=== PATIENT | female | born 1945 | race Caucasian/White ===

== ENCOUNTER 2017-05-13 05:56 | Observation (INO) | payer MEDICARE ==
[~2017-05-13] VITALS: Ht 167.6 cm; Wt 92.4 kg
[~2017-05-13 05:56] MED LIST: ASPI81CH CHEW; ATOR20TA15 PO; GABA100C4 PO; HYDR25TA5 PO; LANTUS2P SQ; LEVO25TA4 PO; LISI2.5T3 PO; METF500T PO
[2017-05-13] MEDS ORDERED: CHLORHEXIDINE GLUCONATE 2 % 1 PACK (2 CLOTHS) TOPICAL PRN (06:30)
[2017-05-13] MEDS ORDERED: LACTATED RINGER'S 1000 ML IV PRN (06:30)
[2017-05-13] MEDS ORDERED: METOPROLOL TARTRATE 25 MG TAB PO PRN (06:30)
[2017-05-13] MEDS ORDERED: ceFAZolin 1,000 MG/NS 100 ML IV SCH ×2 (06:30)
[2017-05-13] MEDS ORDERED: SODIUM CHLORID 0.9% 500 ML IV PRN (06:30)
[2017-05-13] MEDS ORDERED: LACTATED RINGER'S 1000 ML INJ 1,000 ML IV SCH (06:30)
[2017-05-13] MEDS: POVIDONE IODINE 5% (ANTISEPSIS KIT) 4 APPLICATIONS EACH NARE PRN ×2 (06:58→07:26)
[2017-05-13 07:18] VITALS: BP 135/64; PULSE 58; RESP 20; TEMP 98.8; O2SAT 96
[2017-05-13] MEDS: INSULIN HUMAN REGULAR 1,000 UNITS/10 ML VIAL SQ PRN (07:25)
[2017-05-13] MEDS ORDERED: THROMBIN (TOPICAL) 5,000 UNIT VIAL ONE (08:12)
[2017-05-13] MEDS ORDERED: GELFOAM SIZE 100 ONE (08:12)
[2017-05-13] MEDS ORDERED: GENTAMICIN SULFATE 80 MG/2 ML VIAL ONE (08:12)
[2017-05-13] MEDS ORDERED: FAMOTIDINE 20 MG/2 ML VIAL ONE (08:13)
[2017-05-13] MEDS ORDERED: LIDOCAINE 1%/EPINEPHrine 1:100,000 SOLN 20 ML VIAL ONE (08:13)
[2017-05-13] MEDS ORDERED: KETAMINE HCL 500 MG/5 ML VIAL ONE (08:13)
[2017-05-13] MEDS ORDERED: fentaNYL CITRATE 250 MCG/5 ML AMP ONE (08:13)
[2017-05-13] MEDS ORDERED: MIDAZOLAM HCL 2 MG/2 ML VIAL ONE (08:13)
[2017-05-13] MEDS ORDERED: ACETAMINOPHEN 1000 MG/100 ML VIAL IV ONE (08:14)
[2017-05-13] MEDS ORDERED: ONDANSETRON HCL 4 MG/2 ML VIAL IV PUSH ONE (12:00)
[2017-05-13] MEDS ORDERED: PROPOFOL 200 MG/20 ML AMP IV ONE (12:00)
[2017-05-13] MEDS ORDERED: LACTATED RINGER'S 1000 ML INJ 1,000 ML IV ONE (12:00)
[2017-05-13] MEDS ORDERED: ePHEDrine/NS 25 MG/5 ML SYR IV ONE (12:00)
[2017-05-13] MEDS ORDERED: ceFAZolin INJ 1,000 MG VIAL IV ONE (12:00)
[2017-05-13] MEDS ORDERED: NEOSTIGMINE 3 MG/3 ML SYR IV ONE (12:00)
[2017-05-13] MEDS ORDERED: NORMOSOL R INJ 1,000 ML IV ONE (12:00)
[2017-05-13] MEDS ORDERED: DO NOT ADM ANY ANTICOAGULANT DRUGS PRN (13:15)
[2017-05-13] MEDS ORDERED: SODIUM CHLORIDE 0.9% FLUSH 5 ML FLUSH IVF PRN (13:30)
[2017-05-13] MEDS ORDERED: NALOXONE HCL 0.4 MG/ML AMP IV PRN (13:30)
[2017-05-13] MEDS ORDERED: MORPHINE SULFATE 4 MG/ML INJ IV PRN (13:30)
--- NOTE | 2017-05-13 13:43 | PD.OP ---
Operative Report Date of Surgery: May 13, 2017 Preoperative Diagnosis: (1) Cervical disc disorder with radiculopathy 1. C5 6 central to left posterior osteophytic disc complex with severe left foraminal stenosis 2. Left C6 radiculopathy Postoperative Diagnosis: (1) Cervical disc disorder with radiculopathy 1. C5 6 central to left posterior osteophytic disc complex with severe left foraminal stenosis 2. Left C6 radiculopathy Procedure: 1. C5-6 anterior cervical discectomy, resection posterior aspect is complex, bilateral foraminotomy-microtechnique 2. C5-6 anterior cervical interbody fusion with composite allograft bone 3. C5-6 anterior cervical instrumentation Anesthesia: Gen. Surgeon: Sergio Carvajal Rn Relief Charge(s): Waylon Martinez Operation and Findings: Findings: Large central to left C5 6 posterior osteophytic disc complexes with significant left foraminal stenosis. Procedure in detail: The patient was brought into the operating room and positioned in supine position on the 3080 table with the head and neck in neutral position. Lines were established by Anesthesia. Gen. endotracheal anesthesia was induced without difficulty, taking care not to significantly flex or extend the patient's neck during intubation and positioning. Leads for intraoperative neuro monitoring were placed and a baseline study obtained. All extremities were appropriately padded. The neck and upper chest were shaved with clippers and sterilely prepped and draped. Appropriate timeout procedure was performed with all personnel present and in agreement 1% Xylocaine with epinephrine was used for local infiltration over the incision site which was made transversely at the left C5 6 level and carried sharply down through the platysma muscle. The exposure was continued medial to the sternocleidomastoid muscle and carotid artery, and lateral to the trachea and esophagus. The prevertebral fascia was elevated away from the anterior longitudinal ligament with a Kitner sponge. The longus coli muscle on each side was elevated with the Toro elevator. The self-retaining retractor was placed with the blades beneath the longus coli muscle on each side. The appropriate levels were confirmed with intraoperative C-arm and preoperative imaging studies. The microscope was brought into place and used for the remainder of the procedure including the closure. The 14 mm distraction pins were used as needed for gentle distraction during the procedure. The procedure was performed at the C5 6 level The anterior osteophyte was resected with the Le[place]ell rongeur. The disc and annulus was incised with a 15 blade knife and discectomy performed with pituitary biopsy forceps and straight and angled curettes. The TPS drill with the 5 mm barrel bur was used to decorticate the endplates and removed the majority of the osteophyte along the anterior spinal canal as well as the right and left uncovertebral joint. The thin ligament dissector was used to free up the posterior annulus and ligament from the vertebral body margin. The remainder of the resection of the posterior annulus and ligament as well as the posterior osteophyte and bilateral uncovertebral joint was performed with the 2 and 3 mm thin footplate Kerrison rongeurs. A component of herniated nucleus pulposus was encountered posterior to the annulus and was lifted away from the thecal sac with the thickened ligament dissector and removed. Significant posterior osteophyte was encountered and extensively removed. The posterior vertebral bodies were undercut with the Kerrison rongeur and the TPS drill with the 4 mm ayden bur as needed to fully decompress the anterior spinal canal. The appropriate size V G2 bone graft was then placed at each level with a good fit of the graft. The blunt nerve hook was used to probe beneath the bone graft to ensure that there was no impingement on the thecal sac or exiting nerve roots. The appropriate size Precision anterior cervical plate was then chosen and the bone screws were placed with the 14 mm fixed screws at the caudal most level and the 14 mm variable screws at the cephalad level of the decompression. The screws were firmly secured and the locking cams engaged. The entire construct was checked with intraoperative C-arm and felt to be satisfactory. The 10 [place] drain was brought out through a small incision in the left lower neck and secured to the skin with nylon suture and attached to sterile suction. The closure was performed with 3-0 Vicryl running for the platysma and interrupted for the subcutaneous closure, with 4-0 Vicryl running for the subcuticular closure. A dressing of sterile Mastisol, Steri-Strips, and Primapore dressing was placed. The patient was placed into a cervical collar, and taken to recovery room in stable condition. All counts were correct at the end of the case. Estimated blood loss was 100 cc No specimen was sent to pathology. Intraoperative neuro monitoring remained stable during the procedure. Sergio Carvajal MD May 13, 2017 13:43
[2017-05-13] MEDS ORDERED: DEXTROSE 50% IN WATER 50 ML VIAL(D50) IV PRN (13:45)
[2017-05-13] MEDS ORDERED: GLUCAGON 1 MG/ML VIAL OTHER PRN (13:45)
[2017-05-13] MEDS: 1/2 NS + KCL 20 MEQ INJ 1,000 ML IV SCH ×2 (14:50→23:27)
[2017-05-13 16:00] VITALS: BP 156/70; PULSE 87; RESP 18; TEMP 97; O2SAT 95
[2017-05-13] MEDS: INSULIN NovoLIN REGULAR SUPPLEMENTAL SCALE SQ SCH ×2 (16:49→20:28)
[2017-05-13] MEDS: metFORMIN HCL 500 MG TAB PO SCH (16:50)
[2017-05-13] MEDS: GABAPENTIN 100 MG CAP PO SCH (16:50)
--- NOTE | 2017-05-13 18:39 | RADRPT ---
EXAM DATE/TIME: 05/13/2017 09:59 [facility] COMPARISON: No previous studies available for comparison. INDICATIONS : C5-6 fusion. MEDICAL HISTORY : None. SURGICAL HISTORY : None. ENCOUNTER: Initial ACUITY: 1 day PAIN SCORE: Non-responsive. LOCATION: Bilateral C-spine. FINDINGS: There is plate and screw fixation across C5-6 with drain present on the left. Patient intubated. No c omplications identified. CONCLUSION: 1. Postoperative fusion across C5-6. Evangelist Caban MD on May 13, 2017 at 18:36 Board Certified Radiologist. This report was verified electronically.
[2017-05-13 19:10] VITALS: BP 158/70; PULSE 89; RESP 18; TEMP 96.7; O2SAT 94
[2017-05-13] MEDS: traMADol HCL 50 MG TAB PO PRN (19:30)
[2017-05-13] MEDS: INSULIN DETEMIR 100 UNITS/ML VIAL SQ SCH (20:26)
[2017-05-13] MEDS: ATORVASTATIN 20 MG TAB PO SCH (20:27)
[2017-05-13] MEDS: DOCUSATE SODIUM 100 MG CAP PO SCH (20:27)
[2017-05-13] MEDS: SODIUM CHLORIDE 0.9% FLUSH 5 ML FLUSH IVF SCH (20:28)
[2017-05-13 23:40] VITALS: BP 144/73; PULSE 87; RESP 18; TEMP 96.5; O2SAT 97
[2017-05-14] VITALS (8 sets, daily range): BP systolic 138–157; BP diastolic 61–75; PULSE 70–74; RESP 17–18; TEMP 96.3–97.7; O2SAT 95–97
[2017-05-14] MEDS: traMADol HCL 50 MG TAB PO PRN ×4 (06:06→22:10)
[2017-05-14] MEDS: LEVOTHYROXINE SODIUM 25 MCG TAB PO SCH (06:06)
[2017-05-14] MEDS: INSULIN NovoLIN REGULAR SUPPLEMENTAL SCALE SQ SCH ×4 (07:00→19:57)
[2017-05-14] MEDS ORDERED: HYDROCHLOROTHIAZIDE 25 MG TAB PO SCH (09:00)
[2017-05-14] MEDS: SODIUM CHLORIDE 0.9% FLUSH 5 ML FLUSH IVF SCH ×2 (09:00→19:53)
[2017-05-14] MEDS: LISINOPRIL 5 MG TAB PO SCH (09:26)
[2017-05-14] MEDS: PANTOPRAZOLE SOD 40 MG DELAYED RELEASE TAB PO SCH (09:27)
[2017-05-14] MEDS: metFORMIN HCL 500 MG TAB PO SCH ×2 (09:27→18:10)
[2017-05-14] MEDS: DOCUSATE SODIUM 100 MG CAP PO SCH ×2 (09:27→19:53)
[2017-05-14] MEDS: GABAPENTIN 100 MG CAP PO SCH ×3 (09:27→18:00)
[2017-05-14] MEDS: 1/2 NS + KCL 20 MEQ INJ 1,000 ML IV SCH ×2 (09:33→19:27)
[2017-05-14] MEDS: ONDANSETRON HCL 4 MG/2 ML VIAL IV PRN (10:30)
[2017-05-14] MEDS: INSULIN HUMAN REGULAR 1,000 UNITS/10 ML VIAL SQ PRN ×2 (12:42→12:53)
[2017-05-14] MEDS ORDERED: ULTR50TA5 PO (13:58)
--- NOTE | 2017-05-14 14:00 | HHI.DCPOC ---
Discharge Care Plan Diagnosis: (1) Cervical disc disorder with radiculopathy Your Health Problems Are: Difficulty with ADL Incision/Drains Exercise Tolerance Chronic Pain Goals to Promote Your Health * To prevent worsening of your condition and complications * To maintain your health at the optimal level Directions to Meet Your Goals Take your medications as prescribed Follow your dietary instruction Follow activity as directed Keep your appointments as scheduled Take your immunizations and boosters as scheduled If your symptoms worsen call your PCP, if no PCP go to Urgent Care Center or Emergency Room Smoking is Dangerous to Your Health. Avoid second hand smoke Call the 24-hour hour crisis hotline for domestic abuse at Sergio Carvajal MD May 14, 2017 14:00
--- NOTE | 2017-05-14 14:05 | HHI.DS ---
Discharge Summary Admission Date May 13, 2017 at 13:32 Discharge Date: May 14, 2017 Admitting Diagnosis Cervical disc disorder with radiculopathy Left C6 radiculopathy Procedures Date of Surgery: May 13, 2017 Preoperative Diagnosis: (1) Cervical disc disorder with radiculopathy 1. C5 6 central to left posterior osteophytic disc complex with severe left foraminal stenosis 2. Left C6 radiculopathy Postoperative Diagnosis: (1) Cervical disc disorder with radiculopathy 1. C5 6 central to left posterior osteophytic disc complex with severe left foraminal stenosis 2. Left C6 radiculopathy Procedure: 1. C5-6 anterior cervical discectomy, resection posterior aspect is complex, bilateral foraminotomy-microtechnique 2. C5-6 anterior cervical interbody fusion with composite allograft bone 3. C5-6 anterior cervical instrumentation Hospital Course Patient admitted for the above noted procedure performed without complication. Postoperative course uncomplicated. Postop day #1 tolerating diet, pain adequately controlled with oral medications. Discharge Instructions DIET: Follow Instructions for: As Tolerated, No Restrictions Activities to Avoid: Lifting/Bending, Strenuous Activity Sergio Carvajal MD May 14, 2017 14:05
[2017-05-14] MEDS ORDERED: ONDA4TAB7 SL (14:20)
--- NOTE | 2017-05-14 14:43 | HHI.NSPN ---
(Francisco Mccartney) History Chief Complaint: Neck pain (Francisco Mccartney) Interval History 05/13: The patient presented to [facility] for a C5-6 ACDF due to a left C6 radiculopathy. Post operatively she was doing well and admitted to a regular med /surg floor. 05/14: The patient is awake and sitting upright in bed with her family present. She complains of neck pain when seen. She endorsed having nausea earlier as well. When discussing discharge both family members present jumped in and stated that she didn't want to go home because she didn't feel good and was having pain. Nursing did report afterward that the patient has been up and ambulating the hallways and that her demeanor did change once her family arrived. (Francisco Mccartney) System Review Comments Constitutional: Patient denies any fever or chills. HEENT: Patient complains of sore throat but denies any hoarseness or difficulty swallowing. Neck: Patient complains of pain to back of the neck. Respiratory: Patient denies any shortness of breath or productive cough. Cardiovascular: Patient denies any chest pain, palpitations or irregular heartbeat. Gastrointestinal: Patient has had nausea due to pain medication. She denies any abdominal pain, vomiting or incontinence of stool. Genitourinary: Patient denies any incontinence of urine. Musculoskeletal: Patient denies any pain or weakness to the extremities. Neurologic: Patient complains of headache and dizziness. She denies any numbness or tingling. (Francisco Mccartney) Exam Results Vital Signs Date Time Temp Pulse Resp B/P Pulse Ox O2 Delivery O2 Flow Rate FiO2 05/14/17 12:00 97.7 71 18 145/72 97 05/14/17 10:58 21 05/13/17 15:15 Nasal Cannula 2 Intake and Output 05/13/17 05/13/17 05/13/17 07:59 15:59 23:59 Intake Total 1550 ml 839 ml Output Total 100 ml 13 ml Balance 1450 ml 826 ml (Francisco Mccartney) Physical Examination GENERAL: The patient is awake & alert sitting up in bed. She appears uncomfortable but not in distress. Her affect is flat. SKIN: Intact surgical dressing to left anterior neck w/o any shadowing, no evident erythema or streaking. No other evident discolouration, rashes, ulcerations or lesions. HEENT: Normocephalic, atraumatic. NECK: [place] J cervical collar in place, midline cervical spine NTTP, TTP to anterior surgical site, WAYNE drain to bulb suction w/serosanguinous drainage. CARDIOVASCULAR: S1S2 w/RRR w/o M/G/R, radial & pedal pulses 2+ bilaterally, cap refill < 2 sec, no pedal edema. RESPIRATORY: CTAB w/o W/R/R, equal excursion, nonlaboured, on NC. GASTROINTESTINAL: Abdomen soft, nontender, positive bowel sounds. MUSCULOSKELETAL: DYE w/o difficulty, no evident deformity or clubbing. NEUROLOGICAL: AAOx3. Speech clear & appropriate. Follows simple commands w/o difficulty. Sensation intact to light touch to all extremities. Motor strength 5/5 to all major flexion & extension muscle groups to include hand intrinsics/extrinsics. (Francisco Mcacrtney) Lab, Micro, Other Results Allergies Coded Allergies Type Severity Reaction Last Updated Verified Codeine Allergy Severe 05/13/17 Yes Contrast Media Allergy Severe Hives 05/13/17 Yes Iodine Allergy Severe Hives 05/13/17 Yes Recent Impressions Cervical Spine X-Ray 05/13/17 0000 Signed Impressions: Service Date/Time: April 09:59 - CONCLUSION: 1. Postoperative fusion across C5-6. Evangelist Caban MD ///// 05:59 17:59 05:59 17:59 05:59 17:59 Intake Total 1550 ml 839 ml 360 ml Output Total 100 ml 13 ml 5 ml Balance 1450 ml 826 ml 355 ml Intake Oral 360 ml 360 ml IV Total 150 ml 479 ml Other 1400 ml Output Urine Total 0 ml 3 ml Drainage Total 10 ml 5 ml Estimated Blood Loss 100 ml # Voids 7 # Bowel Movements 0 0 Vital Signs Date Time Temp Pulse Resp B/P Pulse Ox O2 Delivery O2 Flow Rate FiO2 05/14/17 12:00 97.7 71 18 145/72 97 05/14/17 10:58 95 21 05/14/17 08:00 96.7 70 18 144/65 96 05/14/17 03:26 96.7 74 18 157/75 97 05/13/17 23:40 96.5 87 18 144/73 97 05/13/17 19:10 96.7 89 18 158/70 94 05/13/17 16:00 97.0 87 18 156/70 95 05/13/17 15:15 85 16 153/71 97 Nasal Cannula 2 05/13/17 15:00 81 16 156/71 96 Nasal Cannula 2 05/13/17 14:45 81 16 166/71 96 Nasal Cannula 2 05/13/17 14:30 79 16 158/72 96 Nasal Cannula 2 05/13/17 14:15 82 16 164/68 95 Nasal Cannula 2 05/13/17 14:00 81 16 161/74 96 Nasal Cannula 2 05/13/17 13:45 78 16 161/73 97 Nasal Cannula 2 05/13/17 13:30 76 16 160/72 96 Nasal Cannula 4 05/13/17 13:15 80 16 163/72 95 Nasal Cannula 4 05/13/17 13:00 84 16 170/79 96 Simple Mask 10 05/13/17 12:50 98.7 83 16 174/77 98 Simple Mask 10 05/13/17 07:18 98.8 58 20 135/64 96 (Francisco Mccartney) Medical Decision Making Impression and Plan Impression: (1) Cervical disc disorder with radiculopathy 1. C5 6 central to left posterior osteophytic disc complex with severe left foraminal stenosis 2. Left C6 radiculopathy Patient doing well although patient complains of pain, neurologically intact. WAYNE drain w/15 mL out. POD # 1 () s/p: 1. C5-6 anterior cervical discectomy, resection posterior aspect is complex, bilateral foraminotomy-microtechnique 2. C5-6 anterior cervical interbody fusion with composite allograft bone 3. C5-6 anterior cervical instrumentation Plan: Neuro checks. Cervical collar at all times. Mobilise patient w/assistance if needed. Remove WAYNE drain. Plan to discharge patient this afternoon. (Francisco Mccartney) Attending Statement I have personally seen and examined the patient on the date of this note. Pertinent documentation and study results have been reviewed by the undersigned. I have personally developed the treatment plan and performed medical decision making. Agree with findings, exam, and treatment plan as noted above. Patient with significantly increased pain as well as nausea with pain medications earlier today. Patient and family earlier did not want discharged home due to above symptoms. This evening she is more comfortable, tolerated fluid and diet this evening. Denies any pain weakness or numbness in the upper extremities. Complains of moderate neck pain. No nausea this evening. Sleeping comfortably. Cervical collar in place Moderate posterior cervical paraspinous muscle tenderness Dressing dry and intact. No significant neck edema. No hoarseness of voice. Sensation intact by touch upper extremities Motor function intact upper extremities Carlos A's response has some bilateral Improving steadily this evening. Anticipate that she can discharge home tomorrow. Medications discussed with patient. (Sergio Carvajal MD) Francisco Mccartney May 14, 2017 14:43 Sergio Carvajal MD May 14, 2017 22:45
[2017-05-14] MEDS: ATORVASTATIN 20 MG TAB PO SCH (19:52)
[2017-05-14] MEDS: INSULIN DETEMIR 100 UNITS/ML VIAL SQ SCH (19:57)
[2017-05-15 00:20] VITALS: BP 143/62; PULSE 65; RESP 17; TEMP 96.9; O2SAT 97
[2017-05-15] MEDS: 1/2 NS + KCL 20 MEQ INJ 1,000 ML IV SCH (01:35)
[2017-05-15 04:25] VITALS: BP 130/60; PULSE 63; RESP 18; TEMP 96.7; O2SAT 96
[2017-05-15] MEDS: ONDANSETRON HCL 4 MG/2 ML VIAL IV PRN (04:58)
[2017-05-15] MEDS: LEVOTHYROXINE SODIUM 25 MCG TAB PO SCH (06:07)
[2017-05-15] MEDS: traMADol HCL 50 MG TAB PO PRN (06:08)
[2017-05-15] MEDS: INSULIN NovoLIN REGULAR SUPPLEMENTAL SCALE SQ SCH (06:09)
[2017-05-15 08:00] VITALS: BP 155/63; PULSE 81; RESP 15; TEMP 96; O2SAT 91
[2017-05-15] MEDS: LISINOPRIL 5 MG TAB PO SCH (09:05)
[2017-05-15] MEDS: GABAPENTIN 100 MG CAP PO SCH (09:05)
[2017-05-15] MEDS: PANTOPRAZOLE SOD 40 MG DELAYED RELEASE TAB PO SCH (09:05)
== END 2017-05-15 11:10 | disposition home or self-care (01) ==
LOC: HSDC 05:56 → HSDI 13:32 → N06A 15:33
PROVIDERS: ADMIT Neurological Surgery; ATTEND Neurological Surgery
DX: M50.10 Cervical disc disorder with radiculopathy, unspecified cervical region (principal); M48.02 Spinal stenosis, cervical region; G89.29 Other chronic pain; M99.71 Connective tissue and disc stenosis of intervertebral foramina of cervical region; E10.9 Type 1 diabetes mellitus without complications; Z79.4 Long term (current) use of insulin
CPT/HCPCS: 00600; 20931; 22551; 22845; 72040; 76000; 82948; 94150; C1713; G0378; J0131; J0690; J1580; J1815; J2250; J2270; J2405; J2710; J3010; J7120; L0150; L0172